=== PATIENT | female | born 1985 | race African-American/Black ===

== ENCOUNTER 2018-01-04 16:30 | Emergency (ER) | payer OTHER ==
[~2018-01-04] VITALS: Ht 162.6 cm; Wt 90.0 kg
[~2018-01-04 16:30] MED LIST: ALBUTEROL; PROAIR
[2018-01-04 16:35] VITALS: BP 115/81
== END 2018-01-04 20:04 | disposition left against medical advice (07) ==
LOC: ER 18:13
DX: R07.9 Chest pain, unspecified (principal); R11.10 Vomiting, unspecified; M54.9 Dorsalgia, unspecified
CPT/HCPCS: 93005; 99283

== ENCOUNTER 2023-10-05 22:41 | Emergency (ER) | payer OTHER ==
[~2023-10-05] VITALS: Ht 175.3 cm; Wt 106.5 kg
[2023-10-05 23:04] VITALS: TEMP 98.5; O2SAT 100
[2023-10-06 01:53] VITALS: BP 116/79; PULSE 64; RESP 14
[2023-10-06] MEDS: KETOROLAC 30MG/ML VIAL IV STA (01:53)
[2023-10-06] MEDS: ONDANSETRON HCL 4MG/2ML INJ IV STA (01:53)
[2023-10-06] MEDS: SODIUM CHLORIDE 0.9% 1,000 ML IV ONE (02:00)
[2023-10-06 02:13] LABS: BASOPHILS % 1.6 % (0.0-2.0); EOSINOPHILS % 2.4 % (0.0-5.0); HEMATOCRIT. 36.9 % (36.0-48.0); HEMOGLOBIN. 12.7 g/dL (12.0-16.0); LYMPHOCYTES % 40.2 % (20.0-50.0); MEAN CORPUSCULAR HEMOGLOBIN 32.4 pg (28.0-32.0); MEAN CORPUSCULAR HGB CONC 34.4 g/dL (31.0-37.0); MEAN CORPUSCULAR VOLUME 94.3 fL (81.0-99.0); MEAN PLATELET VOLUME 7.6 fl (7.4-10.4); MONOCYTES % 4.6 % (2.0-8.0); NEUTROPHILS % 51.2 % (40.0-76.0); PLATELET 356 x1000/uL (130-400); RED BLOOD CELL COUNT 3.91 mill/uL (4.2-5.4); WHITE BLOOD COUNT 7.9 x1000/uL (4.5-11.0)
[2023-10-06 02:20] LABS: ALANINE AMINOTRANSFERASE 8 IU/L (10-49); ALBUMIN 3.8 g/dL (3.2-4.8); ASPARTATE AMINOTRANSFERASE 14 IU/L (<34); BILIRUBIN TOTAL 0.2 mg/dL (0.1-1.0); CALCIUM 8.8 mg/dL (8.7-10.4); CARBON DIOXIDE 26 mEq/L (21-32); CHLORIDE 108 mEq/L (98-107); CREATININE 0.6 mg/dL (0.6-1.0); GLUCOSE 96 mg/dL (70-105); POTASSIUM 4.4 mEq/L (3.5-5.1); PROTEIN TOTAL 6.4 g/dL (6.0-8.3); SODIUM 138 mEq/L (136-145); UREA NITROGEN BLOOD 12 mg/dL (9-23)
[2023-10-06 02:58] LABS: CLARITY URINE CLEAR (CLEAR); COLOR URINE YELLOW (YELLOW); GLUCOSE URINE NEGATIVE (NEGATIVE); KETONES URINE TRACE (NEGATIVE); NITRITE URINE NEGATIVE (NEGATIVE); OCCULT BLOOD URINE NEGATIVE (NEGATIVE); PROTEIN URINE NEGATIVE (NEGATIVE); SPECIFIC GRAVITY URINE 1.031 (1.005-1.030)
[2023-10-06 02:59] LABS: LEUKOCYTE ESTERASE URINE NEGATIVE (NEGATIVE)
[2023-10-06] MEDS ORDERED: IBUP-2029 MT (06:04)
== END 2023-10-06 06:58 | disposition home or self-care (01) ==
LOC: ER 22:41
DX: R10.9 Unspecified abdominal pain (principal); F12.10 Cannabis abuse, uncomplicated
CPT/HCPCS: 99284; 74176; 96374; 71045; 96361; 96375; 80053; 81003; 83690; 85025; 36415; J1885; J2405; J7030